=== PATIENT | female | born 1985 ===

== ENCOUNTER 2018-03-05 09:13 | Day surgery (SDC) | payer BC ==
[2018-03-04 14:51] VITALS: BMI 26.6
[2018-03-05 10:16] VITALS: O2SAT 100
[2018-03-05] MEDS ORDERED: Propofol 10 mg/ml Inj (20 ML) ONE (10:47)
[2018-03-05 13:18] VITALS: TEMP 97.8
[2018-03-05 13:20] VITALS: RESP 16
[2018-03-05 13:22] VITALS: BP 112/76; PULSE 66
== END 2018-03-05 12:44 | disposition home or self-care (01) ==
LOC: C.ENDO 09:13
PROVIDERS: ATTEND Internal Medicine Gastroenterology
DX: K29.50 Unspecified chronic gastritis without bleeding (principal); R14.0 Abdominal distension (gaseous)
CPT/HCPCS: 43239; 84703; 88305; J2001; J2704

== ENCOUNTER 2018-08-30 23:09 | Emergency (ER) | payer BC ==
[2018-08-30 23:09] VITALS: BMI 26.6
[2018-08-30 23:18] VITALS: TEMP 99.2; O2SAT 100
[2018-08-30] MEDS ORDERED: Sodium Chloride 0.9% 1,000 ML IV ONE (23:35)
--- NOTE | 2018-08-30 23:35 | C.PDOC ---
History Of Present Illness 33 year old female presents to the ED c/o dizziness, nausea that has been worsening since this morning. Patient reports symptoms worsened with moving her head from laying to standing position as well as moving her head side to side. Patient denies tinnitus, injury, fall, trauma, headache, visual changes, vomit, weakness, numbness. Time Seen by Provider: 08/30/18 23:34 Chief Complaint (Nursing): Dizziness/Lightheaded History Per: Patient History/Exam Limitations: no limitations Onset/Duration Of Symptoms: Hrs Current Symptoms Are (Timing): Still Present Activity At Onset Of Symptoms: Lying, Standing Associated Symptoms Preceding Syncopal Episode: No Predromal Symptoms (Sudden Onset) Seizure Or Post-ictal Symptoms: None Fall Associated With With Symptoms: No Severity: None Recent travel outside of the [place]: No Additional History Per: Patient Past Medical History Reviewed: Historical Data, Nursing Documentation, Vital Signs Vital Signs: Last Vital Signs Temp 99.2 F 08/30/18 23:15 Pulse 74 08/30/18 23:15 Resp 14 08/30/18 23:15 BP 126/85 08/30/18 23:15 Pulse Ox 100 08/30/18 23:15 - Medical History PMH: Anemia Denies: Chronic Kidney Disease Surgical History: No Surg Hx Family History: States: Unknown Family Hx - Social History Hx Alcohol Use: No Hx Substance Use: No - Immunization History Hx Tetanus Toxoid Vaccination: No Hx Influenza Vaccination: No Hx Pneumococcal Vaccination: No Review Of Systems Constitutional: Negative for: Fever, Chills Eyes: Negative for: Vision Change Cardiovascular: Negative for: Chest Pain Respiratory: Negative for: Shortness of Breath Gastrointestinal: Positive for: Nausea. Negative for: Vomiting Musculoskeletal: Negative for: Neck Pain Skin: Negative for: Rash Neurological: Positive for: Dizziness. Negative for: Weakness, Numbness, Headache Physical Exam - Physical Exam Appears: Non-toxic, No Acute Distress Skin: Warm, Dry Head: Normacephalic Eye(s): bilateral: Normal Inspection, PERRL, EOMI Ear(s): Bilateral: Normal Throat: No Erythema, No Exudate Neck: Supple Chest: Symmetrical Cardiovascular: Rhythm Regular Respiratory: No Rales, No Rhonchi, No Wheezing Extremity: Bilateral: Atraumatic, Normal Color And Temperature, Normal ROM Neurological/Psych: Oriented x3, Normal Speech, Other (non focal, no nystagmus) Gait: Steady ED Course And Treatment - Laboratory Results Result Diagrams: 08/30/18 23:47 08/30/18 23:47 O2 Sat by Pulse Oximetry: 100 (ON RA) Pulse Ox Interpretation: Normal - CT Scan/US CT head Other Rad Studies (CT/US): Read By Radiologist, Radiology Report Reviewed CT/US Interpretation: CT of the head. Clinical history: dizziness. Technique: Multiple axial CT images were obtained through the head without administration of contrast. Comparison: None. Findings: The ventricles and sulci are symmetric bilaterally. There is no evidence of acute hemorrhage or infarct. There is no midline shift, mass effect, or extra-axial fluid collection. The osseous structures are unremarkable. The visualized paranasal sinuses and mastoid air cells are clear. Impression: Negative study. . Electronically signed on Aug 31, 2018 1:24:20 AM EDT by: Jessica Humphrey M.D., Certified by ABR, MSK, Neuroradiology Progress Note: Plan: - Labs. - Antivert 25 mg PO. - IV fluids. - Zofran 4 mg IVP. - UA Reevaluation Time: 01:38 Reassessment Condition: Improved Disposition Counseled Patient/Family Regarding: Studies Performed, Diagnosis, Need For Followup, Rx Given - Disposition Referrals: Jose Atkinson MD [Medical Doctor] - Disposition: HOME/ ROUTINE Disposition Time: 23:34 Condition: FAIR Additional Instructions: Please return if symptoms recur Prescriptions: Meclizine [Antivert] 25 mg PO TID #21 tab Ondansetron ODT [Zofran ODT] 1 odt PO BID PRN #10 odt PRN Reason: Nausea/Vomiting Instructions: Labyrinthitis, Vertigo (a Type of Dizziness) Forms: [employer] (Uzbek) - Clinical Impression Clinical Impression: Dizziness, Labyrinthitis - Scribe Statement The provider has reviewed the documentation as recorded by the Scribe Matthew Bermudez All medical record entries made by the Scribe were at my direction and personally dictated by me. I have reviewed the chart and agree that the record accurately reflects my personal performance of the history, physical exam, medical decision making, and the department course for this patient. I have also personally directed, reviewed, and agree with the discharge instructions and disposition.
[2018-08-30] MEDS ORDERED: Sodium Chloride 0.9% 1,000 ML ONE (23:44)
[2018-08-30 23:50] LABS: BASO # 0.1 K/uL (0.0-0.2); BASO % 1.3 % (0.0-2.0); EOS # 0.4 K/uL (0.0-0.7); EOS % 3.7 % (0.0-4.0); HEMOGLOBIN 11.4 g/dL (11.0-16.0); LYMPH # 4.6 K/uL (1.0-4.3); LYMPH % 44.3 % (20.0-40.0); MEAN CELL VOLUME 68.5 fL (81.0-99.0); MEAN CORPUSCULAR HEMOGLOBIN 21.7 pg (27.0-31.0); MEAN CORPUSCULAR HGB CONC 31.7 g/dL (33.0-37.0); MEAN PLATELET VOLUME 7.5 fL (7.2-11.7); MONO # 0.6 K/uL (0.0-0.8); MONO % 5.4 % (0.0-10.0); NEUT # 4.7 K/uL (1.8-7.0); NEUT % 45.3 % (50.0-75.0); RBC 5.27 Mil/uL (3.80-5.20); RED CELL DISTRIBUTION WIDTH 16.8 % (11.5-14.5); WHITE BLOOD COUNT 10.4 K/uL (4.8-10.8)
[2018-08-31 00:02] LABS: ALB/GLOB RATIO 1.3 (1.0-2.1); ALBUMIN 4.5 g/dL (3.5-5.0); ALT/SGPT 31 U/L (9-52); AST/SGOT 31 U/L (14-36); BLOOD UREA NITROGEN 9 mg/dL (7-17); GFR NON-AFRICAN AMERICAN > 60
[2018-08-31 00:33] LABS: HCG,QUALITATIVE URINE NEGATIVE (NEGATIVE)
[2018-08-31 00:34] LABS: SQUAMOUS EPITHIAL 1 /hpf (0-5); URINE BACTERIA OCC (<OCC); URINE BILIRUBIN NEGATIVE (NEGATIVE); URINE BLOOD 1+ (NEGATIVE); URINE CLARITY Clear (Clear); URINE COLOR Straw (YELLOW); URINE GLUCOSE (UA) NORMAL (Normal); URINE LEUKOCYTE ESTERASE NEG Leu/uL (Negative); URINE PROTEIN NEGATIVE (NEGATIVE); URINE UROBILINOGEN NORMAL mg/dL (0.2-1.0)
[2018-08-31 01:36] VITALS: BP 107/63; PULSE 86; RESP 16
--- NOTE | 2018-08-31 08:11 | CT ---
Date of service: 08/31/2018 PROCEDURE: CT HEAD WITHOUT CONTRAST. HISTORY: severe dizziness COMPARISON: None available. TECHNIQUE: Axial computed tomography images were obtained through the head/brain without intravenous contrast. Radiation dose: Total exam DLP = 928.02 mGy-cm. This CT exam was performed using one or more of the following dose reduction techniques: Automated exposure control, adjustment of the mA and/or kV according to patient size, and/or use of iterative reconstruction technique. FINDINGS: HEMORRHAGE: No intracranial hemorrhage. BRAIN: No mass effect or edema. No atrophy or chronic microvascular ischemic changes. VENTRICLES: Unremarkable. No hydrocephalus. CALVARIUM: Unremarkable. PARANASAL SINUSES: Unremarkable as visualized. No significant inflammatory changes. MASTOID AIR CELLS: Unremarkable as visualized. No inflammatory changes. OTHER FINDINGS: None. IMPRESSION: No acute intracranial abnormality. If symptoms persist, consider correlation with MRI. These findings were preliminarily reported at 1:24 p.m. on 08/31/[address] Jessica Humphrey from [facility].
== END 2018-08-31 02:00 | disposition home or self-care (01) ==
LOC: C.ER 23:09
DX: H83.09 Labyrinthitis, unspecified ear (principal); R42 Dizziness and giddiness
CPT/HCPCS: 70450; 80053; 81001; 84703; 85025; 96361; 96374; 99285; J2405; J7030